=== PATIENT | male | born 2000 | race Hispanic/Latino ===

== ENCOUNTER 2022-12-09 07:04 | Inpatient (IN) | payer OTHER ==
[2022-12-09 07:21] LABS: Hematocrit 39.8 % (42.0-52.0); Hemoglobin 13.1 g/dL (14.0-18.0); Mean Corpuscular HGB CONC 32.9 g/dL (32.0-36.0); Mean Corpuscular Hemoglobin 27.2 pg (27.0-31.0); Mean Corpuscular Volume 82.7 fl (78.0-98.0); Mean Platelet Volume 8.9 fL (7.4-10.4); Platelet Count 405 10x3/uL (130-400); RBC Distribution Width 12.4 % (11.5-14.5); Red Blood Cell (RBC) Count 4.81 mill/uL (4.70-6.10); White Blood Cell (WBC) Count 13.7 10x3/uL (4.8-10.8)
[2022-12-09] MEDS ORDERED: Morphine 4 MG/ML VIAL ONE (07:25)
[2022-12-09] MEDS ORDERED: Boostrix 0.5 ML (Tdap) VIAL (>/=7 yrs of age) ONE (07:25)
[2022-12-09] MEDS ORDERED: Ketorolac Tromethamine 30 MG/ML VIAL ONE (07:25)
[2022-12-09 07:26] LABS: Delete Auto Diff?? YES; Manual Diff?? YES
[2022-12-09 07:45] LABS: ALT (SGPT) 189 U/L (8-55); AST (SGOT) 228 U/L (5-34); Albumin 4.3 g/dL (3.5-5.0); Alkaline Phosphatase 91 U/L (40-110); Anion Gap 16 mmol/L (10-20); BUN (Urea Nitrogen) 12 mg/dL (8.9-20.6); Bilirubin, Total 0.3 mg/dL (0.2-1.2); Calc. Creatinine Clearance 0 mL/min (70-130); Calcium 9.3 mg/dL (7.8-10.44); Carbon Dioxide 19 mmol/L (22-29); Chloride 109 mmol/L (98-107); Estimated GFR 115; Globulin 2.7 g/dL (2.4-3.5); Glucose 141 mg/dL (70-105); Potassium 4.3 mmol/L (3.5-5.1); Sodium 140 mmol/L (136-145)
[2022-12-09 07:46] LABS: Acetaminophen Less than 10 mcg/mL (10.0-30.0); Alcohol Less than 10.0 mg/dL (Less than 10); Salicylate Less than 8.0 mg/dL (15.0-30.0)
[2022-12-09 08:20] LABS: Band 6 % (5-11); Eosinophils 2 % (0-10); Lymphocytes 40 % (21-51); Monocytes 8 % (0-10); Neutrophil 41 % (42-75); Reactive Lymphocytes 3 % (0-10)
[2022-12-09 08:21] LABS: RBC Morph Comment Within Normal Limits
[2022-12-09] MEDS ORDERED: Iopamidol-370 76% 500 ML MDV (1 ML CHARGE) ONE (09:26)
[2022-12-09] MEDS ORDERED: fentaNYL 50 mcg/mL 1 mL Vial ONE (10:35)
[2022-12-09] MEDS ORDERED: Morphine 2 MG/ML VIAL SLOW IVP PRN (10:37)
[2022-12-09] MEDS ORDERED: Cyclobenzaprine 10 MG TAB PO PRN (10:37)
[2022-12-09] MEDS ORDERED: Ipratropium/Albuterol 3 ML NEB NEB PRN (10:38)
[2022-12-09] MEDS ORDERED: Ondansetron PF 4 MG/2 ML Vial IVP PRN (10:38)
[2022-12-09] MEDS ORDERED: TETANUS, DIPHTHERIA TOX,ADULT (TDVAX) 0.5 ML VIAL IM ONE (10:38)
[2022-12-09] MEDS ORDERED: Ketorolac Tromethamine 30 MG/ML VIAL IVP SCH (10:45)
[2022-12-09] MEDS ORDERED: CEFAZOLIN 2 GM in Sodium Chloride 0.9% 100 ML IVPB SCH (10:45)
[2022-12-09] MEDS ORDERED: Tranexamic Acid 1,000 MG/10 ML VIAL ONE (10:46)
[2022-12-09] MEDS ORDERED: SUGAMMADEX SODIUM 200 MG/2 ML VIAL ONE ×2 (10:46→12:25)
[2022-12-09] MEDS ORDERED: Fentanyl 250 MCG/5 ML VIAL ONE (10:46)
[2022-12-09] MEDS ORDERED: Dexmedetomidine 200 MCG/2 ML VIAL ONE (11:11)
[2022-12-09] MEDS ORDERED: CEFAZOLIN 2 GM VIAL ONE (11:18)
[2022-12-09] MEDS ORDERED: Glycopyrrolate 0.2 MG/ML 5 ML SYRINGE ONE (11:50)
[2022-12-09] MEDS ORDERED: PROPOFOL 200 MG/20 ML VIAL ONE (11:50)
[2022-12-09] MEDS ORDERED: PHENYLEPHRINE-NS 100 MCG/ML 10 ML SYRINGE ONE (11:50)
[2022-12-09] MEDS ORDERED: Ondansetron PF 4 MG/2 ML Vial ONE (11:50)
[2022-12-09] MEDS ORDERED: Metoclopramide HCl 10 MG/2 ML VIAL ONE (11:50)
[2022-12-09] MEDS ORDERED: Dexamethasone 20 MG/5 ML VIAL ONE (11:50)
[2022-12-09] MEDS ORDERED: ePHEDrine Sulfate 50 MG/10 ML VIAL ONE (11:50)
[2022-12-09] MEDS ORDERED: HYDROmorphone 2 MG/ML VIAL ONE (12:25)
[2022-12-09] MEDS ORDERED: Promethazine HCl 25 MG/ML VIAL IM PRN (12:47)
[2022-12-09] MEDS ORDERED: Ondansetron HCl/PF 4 MG/2 ML Vial IVP PRN (12:47)
[2022-12-09] MEDS ORDERED: Sodium Chloride 0.9% 100 ML ONE (13:31)
[2022-12-09] MEDS: Sodium Chloride 0.9% 1,000 ML IV SCH ×2 (15:39→20:26)
[2022-12-09] MEDS: traMADol HCl 50 MG TAB PO SCH ×3 (15:39→23:34)
[2022-12-09] MEDS: Ketorolac Tromethamine 30 MG/ML VIAL IVP SCH ×2 (16:56→23:34)
[2022-12-09 18:24] VITALS: BMI 31.9
[2022-12-09] MEDS: Famotidine/PF 20 mg/2ml Vial SLOW IVP SCH (20:26)
[2022-12-09] MEDS: CEFAZOLIN 2 GM in Sodium Chloride 0.9% 100 ML IVPB SCH (20:26)
[2022-12-09 21:38] LABS: #Monocytes 0.7 thou/uL (0.11-0.59); #Neutrophils 10.7 thou/uL (1.40-6.50); %Basophils 0.1 % (0.0-1.0); %Lymphocytes 6.2 % (21.0-51.0); %Neutrophils 87.2 % (42.0-75.0); Hematocrit 32.7 % (42.0-52.0); Hemoglobin 10.8 g/dL (14.0-18.0); Mean Corpuscular Hemoglobin 27.8 pg (27.0-31.0); Mean Corpuscular Volume 84.1 fl (78.0-98.0); Mean Platelet Volume 8.8 fL (7.4-10.4); RBC Distribution Width 12.9 % (11.5-14.5); Red Blood Cell (RBC) Count 3.89 mill/uL (4.70-6.10); White Blood Cell (WBC) Count 12.2 10x3/uL (4.8-10.8)
[2022-12-09 21:41] LABS: Platelet Count 287 10x3/uL (130-400)
[2022-12-10] MEDS: Sodium Chloride 0.9% 1,000 ML IV SCH ×4 (03:23→21:39)
[2022-12-10] MEDS: CEFAZOLIN 2 GM in Sodium Chloride 0.9% 100 ML IVPB SCH (03:26)
[2022-12-10] MEDS: traMADol HCl 50 MG TAB PO SCH ×3 (05:28→18:17)
[2022-12-10] MEDS: Ketorolac Tromethamine 30 MG/ML VIAL IVP SCH (05:29)
[2022-12-10 06:04] LABS: #Monocytes 1.2 thou/uL (0.11-0.59); #Neutrophils 9.2 thou/uL (1.40-6.50); %Basophils 0.1 % (0.0-1.0); %Lymphocytes 9.3 % (21.0-51.0); %Monocytes 10.7 % (0.0-10.0); %Neutrophils 79.3 % (42.0-75.0); Hematocrit 31.1 % (42.0-52.0); Hemoglobin 10.1 g/dL (14.0-18.0); Mean Corpuscular HGB CONC 32.5 g/dL (32.0-36.0); Mean Corpuscular Hemoglobin 27.4 pg (27.0-31.0); Mean Corpuscular Volume 84.3 fl (78.0-98.0); Mean Platelet Volume 9.3 fL (7.4-10.4); Platelet Count 287 10x3/uL (130-400); RBC Distribution Width 12.9 % (11.5-14.5); Red Blood Cell (RBC) Count 3.69 mill/uL (4.70-6.10); White Blood Cell (WBC) Count 11.6 10x3/uL (4.8-10.8)
[2022-12-10 06:31] LABS: Anion Gap 11 mmol/L (10-20); BUN (Urea Nitrogen) 15 mg/dL (8.9-20.6); CK (CPK) 2376 U/L (30-200); Calc. Creatinine Clearance 192 mL/min (70-130); Calcium 8.9 mg/dL (7.8-10.44); Carbon Dioxide 23 mmol/L (22-29); Chloride 107 mmol/L (98-107); Estimated GFR 128; Glucose 127 mg/dL (70-105); Sodium 137 mmol/L (136-145)
[2022-12-10] MEDS: Famotidine/PF 20 mg/2ml Vial SLOW IVP SCH ×2 (09:29→20:23)
[2022-12-10] MEDS: traMADol HCl 50 MG TAB PO PRN ×2 (12:09→18:17)
[2022-12-10 18:27] LABS: #Monocytes 1.3 thou/uL (0.11-0.59); #Neutrophils 7.6 thou/uL (1.40-6.50); %Basophils 0.1 % (0.0-1.0); %Eosinophils 0.1 % (0.0-10.0); %Lymphocytes 17.7 % (21.0-51.0); %Monocytes 11.7 % (0.0-10.0); %Neutrophils 68.9 % (42.0-75.0); Hematocrit 28.1 % (42.0-52.0); Hemoglobin 9.2 g/dL (14.0-18.0); Mean Corpuscular HGB CONC 32.7 g/dL (32.0-36.0); Mean Corpuscular Hemoglobin 27.5 pg (27.0-31.0); Mean Corpuscular Volume 84.1 fl (78.0-98.0); Platelet Count 234 10x3/uL (130-400); RBC Distribution Width 12.9 % (11.5-14.5); Red Blood Cell (RBC) Count 3.34 mill/uL (4.70-6.10)
[2022-12-10] MEDS ORDERED: Sodium Chloride 0.9% 1,000 ML IV SCH (19:15)
[2022-12-10] MEDS: Senokot S 8.6-50 MG TAB PO SCH (21:42)
[2022-12-11] MEDS: traMADol HCl 50 MG TAB PO PRN ×3 (00:32→11:18)
[2022-12-11] MEDS: traMADol HCl 50 MG TAB PO SCH ×3 (00:33→11:18)
[2022-12-11] MEDS: Sodium Chloride 0.9% 1,000 ML IV SCH ×2 (04:30→09:24)
[2022-12-11 05:53] LABS: #Monocytes 1.3 thou/uL (0.11-0.59); #Neutrophils 6.6 thou/uL (1.40-6.50); %Basophils 0.3 % (0.0-1.0); %Eosinophils 0.2 % (0.0-10.0); %Lymphocytes 23.7 % (21.0-51.0); %Monocytes 12.1 % (0.0-10.0); Hematocrit 27.9 % (42.0-52.0); Hemoglobin 9.1 g/dL (14.0-18.0); Mean Corpuscular HGB CONC 32.6 g/dL (32.0-36.0); Mean Corpuscular Hemoglobin 27.2 pg (27.0-31.0); Mean Corpuscular Volume 83.5 fl (78.0-98.0); Mean Platelet Volume 9.1 fL (7.4-10.4); Platelet Count 239 10x3/uL (130-400); RBC Distribution Width 12.8 % (11.5-14.5); Red Blood Cell (RBC) Count 3.34 mill/uL (4.70-6.10); White Blood Cell (WBC) Count 10.6 10x3/uL (4.8-10.8)
[2022-12-11] MEDS ORDERED: Senokot 8.6 MG TAB PO SCH (09:00)
[2022-12-11] MEDS ORDERED: Polyethylene Glycol 3350 17 GM Packet PO SCH (09:00)
[2022-12-11] MEDS: Famotidine/PF 20 mg/2ml Vial SLOW IVP SCH (09:24)
[2022-12-11] MEDS: Senokot S 8.6-50 MG TAB PO SCH (09:24)
[2022-12-11 16:46] VITALS: BP 127/72; TEMP 98.3
== END 2022-12-11 18:09 | disposition home or self-care (01) | DRG 956 ==
LOC: ERS 07:04 → SURG A 08:52
PROVIDERS: ADMIT Surgery; ATTEND Surgery
PROC: 0QH806Z Insertion of Intramedullary Internal Fixation Device into Right Femoral Shaft, Open Approach (ICD-10-PCS; principal; 2022-12-09)
DX: S72.351A Displaced comminuted fracture of shaft of right femur, initial encounter for closed fracture (principal); T79.6XXA Traumatic ischemia of muscle, initial encounter; D62 Acute posthemorrhagic anemia; V89.2XXA Person injured in unspecified motor-vehicle accident, traffic, initial encounter; R74.01 Elevation of levels of liver transaminase levels
CPT/HCPCS: 36415; 70450; 70486; 71045; 71250; 72125; 72170; 74177; 80048; 80053; 80307; 82550; 83735; 85025; 90471; 90715; 93005; 96374; 96375; C1713; G0390; J1100; J1170; J1650; J1885; J2270; J2405; J2704; J2765; J3010; J3490; J7050; Q9967; S0028